=== PATIENT | male | born 1995 | race African-American/Black ===

== ENCOUNTER 2019-08-01 21:16 | Emergency (ER) | payer MEDICAID ==
[~2019-08-01] VITALS: Ht 175.3 cm; Wt 78.0 kg
[2019-08-01 22:29] VITALS: BP 128/74
== END 2019-08-01 22:48 | disposition home or self-care (01) ==
LOC: ER 21:16
DX: J45.909 Unspecified asthma, uncomplicated (principal)
CPT/HCPCS: 99283

== ENCOUNTER 2019-08-02 06:38 | Inpatient (IN) | payer MEDICAID ==
[~2019-08-02] VITALS: Ht 172.7 cm; Wt 74.8 kg
[2019-08-02] MEDS ORDERED: ALBUTEROL (0.083%) 2.5MG/3ML NEB HHN STA (06:41)
[2019-08-02] MEDS ORDERED: METHYLPREDNISOLONE SOD SUCC 125 MG/2 ML VIAL IV STA (06:41)
[2019-08-02] MEDS ORDERED: IPRATROPIUM BROMIDE (0.02%) 0.5MG/2.5ML NEB HHN STA (06:41)
[2019-08-02] MEDS ORDERED: MAGNESIUM 2 G PREMIX 50 ML IV ONE (06:45)
[2019-08-02 07:19] LABS: EOSINOPHILS % 14.9 % (0.0-5.0); HEMATOCRIT. 44.4 % (42.0-52.0); HEMOGLOBIN. 15.3 g/dL (14.0-18.0); LYMPHOCYTES % 31.2 % (20.0-50.0); MEAN CORPUSCULAR HEMOGLOBIN 32.2 pg (28.0-32.0); MEAN CORPUSCULAR VOLUME 93.5 fL (80.0-94.0); MONOCYTES % 6.1 % (2.0-8.0); NEUTROPHILS % 46.8 % (40.0-76.0); PLATELET 298 x1000/uL (130-400); RED BLOOD CELL COUNT 4.74 mill/uL (4.7-6.1); RED CELL DISTRIBUTION WIDTH 12.1 % (11.6-14.6)
[2019-08-02 07:30] LABS: CHLORIDE 108 mEq/L (98-107)
[2019-08-02 08:16] LABS: BG BASE EXCESS -2.5 mmol/L (-2.0-2.0); BG CARBOXYHEMOGLOBIN 0.2 % (0.5-1.5); BG DEOXYHEMOGLOBIN 0.4 % (0.0-5.0); BG HCO3 ACT 22.8 mmol/L (22.0-26.0); BG METHEMOGLOBIN 0.3 % (0.0-1.5); BG OXYGEN SATURATION 99.6 % (92.0-98.5); BG OXYHEMOGLOBIN 99.1 % (94.0-97.0); BG PCO2 41.3 mmHg (35.0-45.0); BG PO2 380.6 mmHg (75.0-100.0); BG SAMPLE SITE RIGHT RADIAL; BG TOTAL HEMOGLOBIN 15.8 g/dL (12.0-18.0); BG VENT MODE MASK - BIPAP; BG VENT RATE 16 set
[2019-08-02] MEDS ORDERED: LIDOCAINE HCL/PF 1% 2ML VIAL ONE (10:27)
[2019-08-02] MEDS ORDERED: IPRATROPIUM/ALBUTEROL 0.5-3(2.5)MG/3ML NEB HHN PRN (10:45)
[2019-08-02] MEDS ORDERED: ONDANSETRON HCL 4MG/2ML INJ IV PRN (10:45)
[2019-08-02] MEDS ORDERED: BENZONATATE 100MG CAPSULE PO PRN (10:45)
[2019-08-02] MEDS ORDERED: ACETAMINOPHEN 325MG TABLET PO PRN (10:45)
[2019-08-02] MEDS: METHYLPREDNISOLONE SOD SUCC 40 MG/ML VIAL IV SCH ×2 (14:31→21:23)
[2019-08-02 17:33] VITALS: BP 128/67
[2019-08-02 20:00] VITALS: BP 147/54
[2019-08-03] MEDS: IPRATROPIUM/ALBUTEROL 0.5-3(2.5)MG/3ML NEB HHN SCH ×4 (00:41→08:00)
[2019-08-03 04:00] VITALS: BP 137/59
[2019-08-03] MEDS: METHYLPREDNISOLONE SOD SUCC 40 MG/ML VIAL IV SCH (05:51)
[2019-08-03 08:00] VITALS: BP 115/78
== END 2019-08-03 13:53 | disposition left against medical advice (07) | DRG 141 ==
LOC: ER 06:38 → 7WST 07:53 → EDBEDREQSVC 10:19 → ENRESERV 15:52
PROVIDERS: ADMIT Internal Medicine; ATTEND Internal Medicine
PROC: 5A09357 Assistance with Respiratory Ventilation, Less than 24 Consecutive Hours, Continuous Positive Airway Pressure (ICD-10-PCS; principal; 2019-08-02)
DX: J45.901 Unspecified asthma with (acute) exacerbation (principal); E87.8 Other disorders of electrolyte and fluid balance, not elsewhere classified; F17.210 Nicotine dependence, cigarettes, uncomplicated; Z82.5 Family history of asthma and other chronic lower respiratory diseases; Z71.6 Tobacco abuse counseling; Z79.899 Other long term (current) drug therapy; Z53.29 Procedure and treatment not carried out because of patient's decision for other reasons
CPT/HCPCS: 36415; 36600; 71045; 80053; 82375; 82805; 83036; 83880; 84484; 85025; 85379; 87804; 93005; 94644; 94660; 99285; J2920; J2930; J3475; J3490

== ENCOUNTER 2019-11-12 05:52 | Emergency (ER) | payer MEDICAID ==
[~2019-11-12] VITALS: Ht 170.2 cm; Wt 73.0 kg
[2019-11-12] MEDS ORDERED: ONDANSETRON HCL 4MG/2ML INJ IV STA (06:34)
[2019-11-12] MEDS ORDERED: MORPHINE SULFATE 4 MG/ML CPJ (NOT FOR IM USE) IV STA (06:34)
[2019-11-12] MEDS ORDERED: FAMOTIDINE 20MG/2ML VIAL IV STA (06:34)
[2019-11-12] MEDS ORDERED: SODIUM CHLORIDE 0.9% 1,000 ML IV ONE (06:34)
[2019-11-12 07:04] LABS: BASOPHILS % 0.2 % (0.0-2.0); HEMATOCRIT. 45.6 % (42.0-52.0); HEMOGLOBIN. 15.6 g/dL (14.0-18.0); LYMPHOCYTES % 11.5 % (20.0-50.0); MEAN CORPUSCULAR HEMOGLOBIN 32.2 pg (28.0-32.0); MEAN CORPUSCULAR VOLUME 94.4 fL (80.0-94.0); MEAN PLATELET VOLUME 9.3 fl (7.4-10.4); MONOCYTES % 6.5 % (2.0-8.0); NEUTROPHILS % 75.8 % (40.0-76.0); PLATELET 298 x1000/uL (130-400); RED BLOOD CELL COUNT 4.83 mill/uL (4.7-6.1); RED CELL DISTRIBUTION WIDTH 12.4 % (11.6-14.6)
[2019-11-12 07:10] LABS: CHLORIDE 108 mEq/L (98-107)
[2019-11-12] MEDS ORDERED: MORPHINE SULFATE 4 MG/ML CPJ (NOT FOR IM USE) IV ONE (08:00)
[2019-11-12] MEDS ORDERED: KETOROLAC 30MG/ML VIAL IV ONE (09:00)
[2019-11-12] MEDS ORDERED: LEVOFLOXACIN 750MG PREMIX 150 ML IV ONE (09:00)
[2019-11-12] MEDS ORDERED: METRONIDAZOLE 500 MG PREMIX 100 ML IV ONE (09:00)
[2019-11-12] MEDS ORDERED: ACETAMINOPHEN 325MG TABLET PO PRN (14:30)
[2019-11-12] MEDS ORDERED: MORPHINE SULFATE 2 MG/ML CPJ (NOT FOR IM USE) IV PRN (14:30)
[2019-11-12] MEDS ORDERED: ONDANSETRON HCL 4MG/2ML INJ IV PRN (14:30)
[2019-11-12] MEDS ORDERED: PIPERACILLIN/TAZ 3.375G PREMIX 50 ML IV NR (14:30)
[2019-11-12 15:20] VITALS: BP 110/78
[2019-11-12] MEDS ORDERED: PIPERACILLIN/TAZOBACTAM 3.375 G in DEXT 5% WATER 100 ML IV SCH (21:00)
== END 2019-11-12 15:55 | disposition home or self-care (01) ==
LOC: ER 06:17 → EDBEDREQTM 10:09 → EDBEDREQ 10:09 → ER 15:55 → CANBEDREQ 15:59
DX: K52.9 Noninfective gastroenteritis and colitis, unspecified (principal); J45.909 Unspecified asthma, uncomplicated; F17.210 Nicotine dependence, cigarettes, uncomplicated; Z71.6 Tobacco abuse counseling; E87.8 Other disorders of electrolyte and fluid balance, not elsewhere classified
CPT/HCPCS: 36415; 74176; 80053; 83690; 85025; 85610; 96361; 96365; 96366; 96367; 96375; 96376; 99285; J1885; J1956; J2270; J2405; J2543; J3490; J7030

== ENCOUNTER 2022-04-12 11:26 | Emergency (ER) | payer MEDICAID ==
[~2022-04-12] VITALS: Ht 172.7 cm; Wt 61.0 kg
[2022-04-12] MEDS ORDERED: ALBUTEROL (0.083%) 2.5MG/3ML NEB HHN STA (11:37)
[2022-04-12] MEDS ORDERED: METHYLPREDNISOLONE SOD SUCC 125 MG/2 ML VIAL IV STA (11:37)
[2022-04-12] MEDS ORDERED: MAGNESIUM 2 G PREMIX 50 ML IV STA (11:37)
[2022-04-12] MEDS ORDERED: IPRATROPIUM BROMIDE (0.02%) 0.5MG/2.5ML NEB HHN STA (11:37)
[2022-04-12] MEDS ORDERED: ALBU6.7H3 INH (13:33)
[2022-04-12] MEDS ORDERED: ALBU05 NEB (13:33)
[2022-04-12] MEDS ORDERED: P50 PO (13:34)
[2022-04-12 14:12] VITALS: BP 129/63
== END 2022-04-12 14:14 | disposition home or self-care (01) ==
LOC: ER 11:26
DX: J45.901 Unspecified asthma with (acute) exacerbation (principal)
CPT/HCPCS: 71045; 96365; 96375; 99285; J2930; J3475; Z7610

== ENCOUNTER 2022-05-26 19:48 | Emergency (ER) | payer MEDICAID, OTHER ==
[~2022-05-26] VITALS: Ht 177.8 cm; Wt 82.0 kg
[~2022-05-26 19:48] MED LIST: ALBU05 NEB; ALBU6.7H3 INH; P50 PO
[2022-05-26] MEDS ORDERED: ALBUTEROL (0.083%) 2.5MG/3ML NEB HHN STA (20:10)
[2022-05-26] MEDS ORDERED: METHYLPREDNISOLONE SOD SUCC 125 MG/2 ML VIAL IV STA (20:10)
[2022-05-26] MEDS ORDERED: IPRATROPIUM BROMIDE (0.02%) 0.5MG/2.5ML NEB HHN STA (20:10)
[2022-05-26 21:42] VITALS: BP 116/69
[2022-05-26] MEDS ORDERED: ALBU6.7H3 INH (22:11)
[2022-05-26] MEDS ORDERED: P20 MT (22:11)
[2022-05-26] MEDS ORDERED: ALBU2.5V13 NEB (22:11)
== END 2022-05-26 22:21 | disposition home or self-care (01) ==
LOC: ER 19:48
DX: J45.901 Unspecified asthma with (acute) exacerbation (principal); Z79.899 Other long term (current) drug therapy
CPT/HCPCS: 94644; 96374; 99285; J2930; Z7610

== ENCOUNTER 2023-01-09 06:51 | Emergency (ER) | payer MEDICAID, OTHER ==
[~2023-01-09] VITALS: Ht 180.3 cm; Wt 68.0 kg
[~2023-01-09 06:51] MED LIST changes: +ALBU2.5V13 NEB; +P20 MT
[2023-01-09 06:54] VITALS: BP 144/86; TEMP 98.7
[2023-01-09] MEDS ORDERED: IPRATROPIUM BROMIDE (0.02%) 0.5MG/2.5ML NEB HHN STA (07:37)
[2023-01-09] MEDS ORDERED: PREDNISONE 20MG TABLET PO STA (07:37)
[2023-01-09] MEDS ORDERED: ALBUTEROL (0.083%) 2.5MG/3ML NEB HHN STA (07:37)
[2023-01-09 08:37] VITALS: PULSE 82; RESP 18; O2SAT 98
[2023-01-09] MEDS ORDERED: ALBU6.7H3 INH (09:18)
[2023-01-09] MEDS ORDERED: P20 MT (09:19)
== END 2023-01-09 09:29 ==
LOC: ER 07:16
DX: J45.909 Unspecified asthma, uncomplicated (principal)
CPT/HCPCS: 71045; 94640; 99283; J7512; Z7610 ×3

== ENCOUNTER 2023-03-09 14:21 | Emergency (ER) | payer MEDICAID, OTHER ==
[~2023-03-09] VITALS: Ht 170.2 cm; Wt 69.0 kg
[2023-03-09 14:25] VITALS: O2SAT 100
[2023-03-09] MEDS ORDERED: IPRATROPIUM BROMIDE (0.02%) 0.5MG/2.5ML NEB HHN STA (14:41)
[2023-03-09] MEDS ORDERED: ALBUTEROL (0.083%) 2.5MG/3ML NEB HHN STA (14:41)
[2023-03-09] MEDS ORDERED: METHYLPREDNISOLONE SOD SUCC 125MG/2ML (ACT-O-VIAL) IV STA (14:41)
[2023-03-09] MEDS ORDERED: ASPIRIN 81MG TABLET PO ONE (14:45)
[2023-03-09] MEDS ORDERED: MAGNESIUM 2 G PREMIX 50 ML IV ONE (14:45)
[2023-03-09 15:09] LABS: BASOPHILS % 0.7 % (0.0-2.0); EOSINOPHILS % 13.3 % (0.0-5.0); HEMATOCRIT. 39.1 % (42.0-52.0); HEMOGLOBIN. 13.3 g/dL (14.0-18.0); LYMPHOCYTES % 35.3 % (20.0-50.0); MEAN CORPUSCULAR HEMOGLOBIN 31.2 pg (28.0-32.0); MEAN CORPUSCULAR VOLUME 91.6 fL (80.0-94.0); MEAN PLATELET VOLUME 8.5 fl (7.4-10.4); MONOCYTES % 8.5 % (2.0-8.0); NEUTROPHILS % 42.2 % (40.0-76.0); PLATELET 391 x1000/uL (130-400); RED BLOOD CELL COUNT 4.27 mill/uL (4.7-6.1); RED CELL DISTRIBUTION WIDTH 12.4 % (11.6-14.6); WHITE BLOOD COUNT 10.8 x1000/uL (4.5-11.0)
[2023-03-09 15:12] LABS: CALCIUM 9.2 mg/dL (8.5-10.1); CARBON DIOXIDE 27 mEq/L (21-32); CHLORIDE 110 mEq/L (98-107); GLUCOSE 156 mg/dL (70-105); INDEX HEMOLYSI 1 (1-3); INDEX ICTERIC 1 (1-4); INDEX LIPEMIC 1 (1-3); POTASSIUM 3.1 mEq/L (3.5-5.1); SODIUM 143 mEq/L (136-145); UREA NITROGEN BLOOD 11 mg/dL (7-21)
[2023-03-09 15:21] LABS: ALANINE AMINOTRANSFERASE 32 IU/L (13-61); ALBUMIN 3.7 g/dL (3.4-5.0); ASPARTATE AMINOTRANSFERASE 23 IU/L (15-37); BILIRUBIN TOTAL 1.2 mg/dL (0.1-1.0); CREATININE 1.2 mg/dL (0.6-1.3); NT PRO B-TYPE NATRIURETIC PEP 102 pg/mL (5-125); PROTEIN TOTAL 7.2 g/dL (6.0-8.3); TROPONIN I HIGH SENSITIVITY 4 ng/L (<78)
[2023-03-09] MEDS ORDERED: KCL 10MEQ/50ML PREMIX 50 ML IV ONE (16:15)
[2023-03-09 16:16] VITALS: BP 118/67; PULSE 98; RESP 16; TEMP 98.2
== END 2023-03-09 16:18 | disposition left against medical advice (07) ==
LOC: ER 14:21
DX: J45.902 Unspecified asthma with status asthmaticus (principal)
CPT/HCPCS: 80053; 83880; 85025; 84484; 36415; 71045; 93005; 96365; 96375; 99285; Z7610 ×2; J3475; J2930; J3480

== ENCOUNTER 2023-04-05 20:19 | Emergency (ER) | payer MEDICAID, OTHER ==
[~2023-04-05] VITALS: Ht 172.7 cm; Wt 66.0 kg
[2023-04-05 20:24] VITALS: BP 113/67; TEMP 98.4
[2023-04-05] MEDS ORDERED: ALBUTEROL (0.083%) 2.5MG/3ML NEB HHN STA (21:27)
[2023-04-05 22:01] VITALS: PULSE 102; RESP 20; O2SAT 98
[2023-04-05] MEDS ORDERED: ALBU18HF2 IH (22:21)
== END 2023-04-05 22:28 | disposition left against medical advice (07) ==
LOC: ER 20:19
DX: R06.02 Shortness of breath (principal); R06.2 Wheezing; Z79.899 Other long term (current) drug therapy
CPT/HCPCS: 94640; 99283; Z7610 ×3; 94644

== ENCOUNTER 2023-04-09 19:44 | Emergency (ER) | payer MEDICAID ==
[~2023-04-09] VITALS: Ht 172.7 cm; Wt 70.0 kg
[~2023-04-09 19:44] MED LIST changes: +ALBU18HF2 IH
[2023-04-09 19:45] VITALS: O2SAT 100
[2023-04-09] MEDS ORDERED: PREDNISONE 20MG TABLET PO STA (20:09)
[2023-04-09 20:20] VITALS: BP 148/76; PULSE 92; RESP 20; TEMP 98.4
[2023-04-09] MEDS ORDERED: P50 MT (21:09)
[2023-04-09] MEDS ORDERED: ALBU6.7H15 INH (21:09)
== END 2023-04-09 22:13 | disposition home or self-care (01) ==
LOC: ER 19:44
DX: J45.901 Unspecified asthma with (acute) exacerbation (principal); Z79.899 Other long term (current) drug therapy
CPT/HCPCS: 99283; 71045; J7512; 99291

== ENCOUNTER 2023-04-13 06:20 | Emergency (ER) | payer MEDICAID ==
[~2023-04-13] VITALS: Ht 172.7 cm; Wt 68.0 kg
[~2023-04-13 06:20] MED LIST changes: +ALBU6.7H15 INH; +P50 MT
[2023-04-13] MEDS ORDERED: IPRATROPIUM BROMIDE (0.02%) 0.5MG/2.5ML NEB HHN STA (06:24)
[2023-04-13] MEDS ORDERED: METHYLPREDNISOLONE SOD SUCC 125MG/2ML (ACT-O-VIAL) IV STA (06:24)
[2023-04-13] MEDS ORDERED: ALBUTEROL (0.083%) 2.5MG/3ML NEB HHN STA (06:24)
[2023-04-13] MEDS ORDERED: MAGNESIUM 2 G PREMIX 50 ML IV ONE (06:30)
[2023-04-13] MEDS ORDERED: METHYLPREDNISOLONE SOD SUCC 125MG/2ML (ACT-O-VIAL) IV NR (09:45)
[2023-04-13] MEDS ORDERED: ALBUTEROL (0.083%) 2.5MG/3ML NEB HHN NR (09:45)
[2023-04-13] MEDS ORDERED: IPRATROPIUM BROMIDE (0.02%) 0.5MG/2.5ML NEB HHN NR (09:45)
[2023-04-13 10:00] VITALS: PULSE 98; RESP 22; O2SAT 98
[2023-04-13] MEDS ORDERED: P50 MT (12:43)
[2023-04-13] MEDS ORDERED: ALBU6.7H15 INH (12:43)
[2023-04-13 12:46] VITALS: BP 128/88; PULSE 98; RESP 20; TEMP 98.5
== END 2023-04-13 12:47 | disposition home or self-care (01) ==
LOC: ER 06:20
DX: J45.901 Unspecified asthma with (acute) exacerbation (principal); Z79.899 Other long term (current) drug therapy
CPT/HCPCS: 71045; 94644; 96365; 96375; 99285; J3475; J2930; Z7610 ×4

== ENCOUNTER 2023-04-27 16:50 | Emergency (ER) | payer MEDICAID ==
[~2023-04-27] VITALS: Ht 177.8 cm; Wt 82.0 kg
[2023-04-27 16:56] VITALS: BP 128/82; PULSE 110; RESP 20; TEMP 99.3; O2SAT 96
[2023-04-27] MEDS ORDERED: ALBUTEROL (0.083%) 2.5MG/3ML NEB HHN STA (17:12)
[2023-04-27] MEDS ORDERED: IPRATROPIUM BROMIDE (0.02%) 0.5MG/2.5ML NEB HHN STA (17:12)
[2023-04-27] MEDS ORDERED: PREDNISONE 20MG TABLET PO STA (17:12)
== END 2023-04-27 17:40 | disposition left against medical advice (07) ==
LOC: ER 16:50
DX: R06.02 Shortness of breath (principal); J45.909 Unspecified asthma, uncomplicated; Z79.899 Other long term (current) drug therapy
CPT/HCPCS: 99283